=== PATIENT | female | born 1975 | race Caucasian/White ===

== ENCOUNTER 2020-01-07 09:19 | Outpatient (CLI) | payer OTHER, SELFPAY ==
--- NOTE | ~2020-01-07 | MM_ITS ---
EXAMINATION: MM scrn sandra implant BI w hugo HISTORY: Screening mammogram TECHNIQUE: Craniocaudal and mediolateral oblique 3-D tomosynthesis images with implant displacement a nd synthetic 2-D images were generated. Craniocaudal and mediolateral oblique views of the breasts wi thout implant displacement were obtained using full field digital mammography. CAD analysis was submi tted and interpreted. COMPARISON: 11/13/2018, 11/07/2017, 10/10/2016 BREAST PARENCHYMAL COMPOSITION: There are scattered areas of fibroglandular density. FINDINGS: RIGHT BREAST: There is no evidence of suspicious mass, calcification, or architectural distortion to suggest malignancy. There has been no significant interval change. LEFT BREAST: A mass is present in the far posterior third of the outer breast 10 cm from the nipple w hich is only appreciated on the CC and MLO views without implant displacement. IMPRESSION: 1. Left breast mass. 2. Additional mammographic views and possible breast ultrasound are recommended. BI-RADS Category 0: Incomplete: Needs additional imaging evaluation. Reviewed, dictated and finalized at location A. IMPRESSION: 1. Left breast mass. 2. Additional mammographic views and possible breast ultrasound are recommended . BI-RADS Category 0: Incomplete: Needs additional imaging evaluation.
== END 2020-01-07 09:20 | disposition home or self-care (01) ==
LOC: ANHIMG 09:28
DX: Z12.31 Encounter for screening mammogram for malignant neoplasm of breast (principal); R92.8 Other abnormal and inconclusive findings on diagnostic imaging of breast
CPT/HCPCS: 77063; 77067

== ENCOUNTER → 2020-01-22 08:37 | Outpatient (CLI) | payer OTHER, SELFPAY ==
--- NOTE | ~2020-01-22 | MMUS_ITS ---
EXAMINATION: MM diagnostic mammo implant LT, US breast LT limited HISTORY: Posterior upper outer quadrant left breast mass reported on 01/07/2020 screening mammogram ex amination TECHNIQUE: Additional 3-D tomosynthesis images of the left breast were performed and synthetic 2-D im ages were generated. CAD analysis was submitted and interpreted. High resolution upper outer quadrant left breast ultrasound was performed. COMPARISON: 01/07/2020 bilateral implant digital screening mammogram examination FINDINGS: MAMMOGRAPHIC FINDINGS: There is an irregular poorly circumscribed approximately 9 x 13.7 mm mass situated posteriorly in the upper outer quadrant of the left breast. The mammographic features are very suspicious. ULTRASOUND: There is an irregular poorly circumscribed hypoechoic approximately 9 x 15 mm mass at 2:00 8 cm from the nipple with mild posterior shadowing. This is highly suggestive of breast cancer. IMPRESSION: 1. 9 x 15 mm irregular mass in posterior upper outer left breast at 2:00 8 cm from nipple, highly sug gestive of malignancy 2. Ultrasound-guided biopsy is recommended BI-RADS category 5, highly suggestive of malignancy. Connor Amaya was noted at [phone] Maldonado of the findings and ultrasound guid ed biopsy recommendation on 01/22/2020 at 1057 hours Reviewed, dictated and finalized at location A. IMPRESSION: 1. 9 x 15 mm irregular mass in posterior upper outer left breast at 2:00 8 cm f rom nipple, highly suggestive of malignancy 2. Ultrasound-guided biopsy is recommended BI-RADS category 5, highly suggestive of malignancy. Connor Amaya was noted at [phone] Maldonado of the findin gs and ultrasound guided biopsy recommendation on 01/22/2020 at 1057 hours IMPRESSION: 1. 9 x 15 mm irregular mass in posterior upper outer left breast at 2:00 8 cm f rom nipple, highly suggestive of malignancy 2. Ultrasound-guided biopsy is recommended BI-RADS category 5, highly suggestive of malignancy. Monique, R.N. was noted at [phone] Maldonado of the [facility] and ultrasound guided biopsy recommendation on 01/22/2020 at 1057 hours
== END ==
PROVIDERS: PCP Nurse Practitioner; Visit Provider Nurse Practitioner
DX: R92.8 Other abnormal and inconclusive findings on diagnostic imaging of breast (principal)
CPT/HCPCS: 76642; 77065

== ENCOUNTER 2020-01-28 10:04 | Outpatient (CLI) | payer OTHER, SELFPAY ==
--- NOTE | ~2020-01-28 | US_ITS ---
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 Imaging findings are concordant. Addendum 02/24/20 BJO CORRECTED REPORT Post biopsy invasive LT added. 01/28/20 se EXAMINATION: US breast biopsy LT w image, MM post biopsy invasive LT DATE: 01/28/2020 11:26 INDICATION: Suspicious left breast mass. Ultrasound-guided core biopsy is requested to evaluate for malignancy. TECHNIQUE AND FINDINGS: The risks and potential benefits of the procedure were discussed with the patient including bleeding, infection, incomplete damage, and nondiagnostic specimen. A time out was performed. The skin of the left breast was prepared and draped in usual sterile fashion. 1% lidocaine was used for superficial anesthesia. 1% lidocaine with epinephrine was used for deep anesthesia. A vacuum-assisted biopsy gun needle was advanced through to the outer edge of the region of interest from an inferolateral approach utilizing sonographic guidance. A total of four tissue core samples were obtained through the lesion. A tissue marker clip was then placed at the biopsy site. Hemostasis was achieved. A sterile bandage was applied. The patient tolerated procedure well and there was no evidence of immediate complication. The patient was given verbal instructions to return to the Emergency Department in the event of severe breast pain or rapid breast enlargement. A two view left breast mammogram was obtained to document tissue marker clip placement. IMPRESSION: 1. Successful ultrasound-guided vacuum-assisted biopsy of left breast mass with tissue marker placement. Reviewed, dictated and finalized at location A. MTDD
== END 2020-01-28 10:05 | disposition home or self-care (01) ==
LOC: ANHIMG 10:10
PROVIDERS: PCP Family Medicine
DX: N63.20 Unspecified lump in the left breast, unspecified quadrant (principal); C50.912 Malignant neoplasm of unspecified site of left female breast
CPT/HCPCS: 19083; 88305; 88342; A4648

== ENCOUNTER → 2022-07-27 10:27 | Outpatient (CLI) | payer OTHER, SELFPAY ==
--- NOTE | ~2022-07-27 | XR_ITS ---
EXAMINATION: XR chest 2V 07/27/2022 11:10 INDICATION: Acute bronchitis PROCEDURE: 2 view chest COMPARISON: Comparison to multiple prior studies sequentially, with oldest reviewed study dated 11/2014. FINDINGS: The lungs are clear. The cardiomediastinal silhouette is within normal limits. There are no pleural effusions. There is no pneumothorax suspected. IMPRESSION: 1: NO ACUTE CARDIOPULMONARY DISEASE. Reviewed, dictated and finalized at location B.
== END ==
DX: J20.9 Acute bronchitis, unspecified (principal)
CPT/HCPCS: 71046

== ENCOUNTER 2022-12-21 10:19 | Emergency (ER) | payer OTHER, SELFPAY ==
--- NOTE | ~2022-12-21 | CT_ITS ---
CT Abdomen and Pelvis with contrast. History: Epigastric pain. Spiral CT of the abdomen and pelvis was performed after the administration of intravenous contrast. 1 00 cc of Omnipaque 350 was administered intravenously without complication. Dose reduction technique was used on this scan by utilizing automated exposure control and iterative reconstruction technique. The dose-length product (DLP) was 585.36 mGy-cm. COMPARISON: 02/29/2016 Findings: Scans through the lung bases demonstrate mild atelectatic change. Probable left hepatic lobe cyst noted. The spleen, pancreas, gallbladder, adrenals and kidneys are wi thin normal limits. No evidence of aortic aneurysm. No lymphadenopathy is seen. There is no evidence of bowel obstruction. There is no evidence to suggest acute appendicitis or dive rticulitis. Images through the pelvis were performed. Urinary bladder unremarkable. No adnexal mass evident. No a scites. No ascites is seen. Impression: No significant abnormalities seen. Reviewed, dictated and finalized at [facility]. OPEDIC NURSE PRACTITIONER Impression: No significant abnormalities seen.
[2022-12-21 10:22] VITALS: BP 148/90; PULSE 104; RESP 14; TEMP 36.6; O2SAT 100
[2022-12-21 10:42] LABS: Basophils Percent Auto 0.7 % (0.2-1.2); Eosinophils Absolute Auto 0.1 K/mm3 (0-0.3); Eosinophils Percent Auto 1.6 % (0-4.4); Hematocrit 39.2 % (37.0-47.0); Hemoglobin 12.7 g/dL (12.0-15.0); Lymphocytes Absolute Auto 1.32 K/mm3 (0.9-3.2); Lymphocytes Percent Auto 21.6 % (18.3-44.2); Mean Corpuscular HGB Conc 32.4 g/dl (32-36); Mean Corpuscular Hemoglobin 28.3 pg (26-34); Mean Corpuscular Volume 87.5 fl (80-100); Mean Platelet Volume 10.5 fl (7.4-10.4); Monocytes Absolute Auto 0.5 K/mm3 (0.1-0.6); Monocytes Percent Auto 8.8 % (2.6-8.5); Neutrophils Absolute Auto 4.1 K/mm3 (1.3-6.7); Neutrophils Percent Auto 67.3 % (45.5-73.1); Platelet Count Result 191 k/mm3 (150-375); Red Blood Count 4.48 M/mm3 (4.2-5.4); Red Cell Distribution Width 12.7 % (11.5-14.5); White Blood Count 6.1 K/mm3 (4.5-10.0)
[2022-12-21 10:49] LABS: Appearance Urine Clear (Clear); Bilirubin Urine Negative (Negative); Blood Urine Negative (Negative); Color Urine Yellow (Yellow); Glucose Urine UA Negative (Negative); Ketones Urine Negative (Negative); Leukocyte Esterase Ur Trace LEU/UL (Negative); Nitrate Urine Negative (Negative); Protein Urine Negative (Negative); Specific Grav Ur <= 1.005 (1.001-1.035); Urobilinogen Urine 0.2 mg/dL (<2.0); pH Urine 5.5 (5.0-9.0)
[2022-12-21 10:53] LABS: Alanine Aminotransferase 20 U/L (6-35); Albumin Level 3.9 g/dL (3.5-5.1); Alkaline Phosphatase 71 U/L (38-126); Anion Gap 7 mmol/L (8-16); Aspartate Amino Transferase 28 U/L (14-36); Bilirubin,Total 0.4 mg/dL (0.2-1.3); Blood Urea Nitrogen 12 mg/dL (7-17); Calcium 8.2 mg/dL (8.4-10.2); Carbon Dioxide 27 mmol/L (22-30); Chloride 106 mmol/L (98-107); Estimated CRCL calculation 70 ml/min; Estimated Glomerular Filt Rate 60; Glucose 97 mg/dL (65-110); Lipase 137 U/L (23-300); Potassium 3.7 mmol/L (3.4-5.0); Sodium 140 mmol/L (137-145)
[2022-12-21 11:00] LABS: Bacteria Urine Trace /hpf; Mucus Urine Rare /lpf; RBC Urine 0-2 /hpf (0-2); Squamous Epithelial Cell Urine Moderate /hpf (Few); WBC Urine 0-3 /hpf
[2022-12-21 11:04] LABS: Add Urine Microscopic? YES
--- NOTE | 2022-12-21 14:08 | ED.ABDPAIN ---
HPI - Abdominal Pain General Chief Complaint: Abdominal Pain Stated Complaint: severe abd pain Time Seen by Provider: 12/21/22 12:10 Source: patient Mode of arrival: ambulatory Limitations: no limitations History of Present Illness HPI narrative: 47-year-old here with complaints of epigastric pain for past 3 weeks. She denies any nausea, vomiting of fever no history of blood in the stool or black-colored stool. Patient states that she is taking double the dose of omeprazole for past few days. Yet continues to have pain in the epigastric area. MD elicited complaint: abdominal pain Pertinent past history: none Onset (ago): week(s) (3) Pain Consistency: constant Location: epigastric Quality: aching Radiation: none Migration to: no migration Exacerbating factors: nothing Relieving factors: nothing Related Data Allergies Allergy/AdvReac Type Severity Reaction Status Date / Time adhesive tape Allergy Mild Hives Verified 12/21/22 10:28 Review of Systems Review of Systems: All systems reviewed & are unremarkable except as noted in HPI and below Constitutional: Constitutional: Reports no additional constitutional complaints Eyes: Eyes: Reports no additional eye complaints ENT: Reports system reviewed and no additional complaints, except as documented Cardiovascular: Cardiovascular: Reports no additional cardiovascular complaints Respiratory: Respiratory: Reports no additional respiratory complaints Gastrointestinal: Gastrointestinal: Reports as per HPI Musculoskeletal: Musculoskeletal: Reports no additional musculoskeletal complaints Exam Narrative: GENERAL: Well-appearing, well-nourished, and in no acute distress. HEAD: Normocephalic, atraumatic. EYES: PERRLA and EOMI. NECK: Supple. CHEST: Clear to auscultation. No respiratory distress. HEART: Regular rate and rhythm. No murmur heard. Normal peripheral pulses. ABDOMEN: Soft, tender in the epigastric, nondistended, normal active bowel sounds. EXTREMITIES: Normal range of motion. No edema. SKIN: Warm, dry, no rash. NEURO: No focal deficits. Alert and oriented x3. PSYCH: Normal mood and affect. Course Course Emergency Course: 37-year-old with epigastric pain for 3-week duration with no history of nausea, vomiting , or abdominal work-up including CT was unremarkable. I did inform her about her lab work and CT findings recommended her to take Carafate and follow-up with the GI doctor. She declined any pain medication. Vital Signs Vital signs: Vital Signs Temperature 36.6 C 12/21/22 10:22 Pulse Rate 104 H 12/21/22 10:22 Respiratory Rate 14 12/21/22 10:22 Blood Pressure 148/90 H 12/21/22 10:22 Pulse Oximetry 100 12/21/22 10:22 Oxygen Delivery Room Air 12/21/22 10:22 Temperature 36.6 C 12/21/22 10:22 Pulse Rate 104 H 12/21/22 10:22 Respiratory Rate 14 12/21/22 10:22 Blood Pressure 148/90 H 12/21/22 10:22 Pulse Oximetry 100 12/21/22 10:22 Oxygen Delivery Room Air 12/21/22 10:22 MDM - Abdominal Pain MDM Narrative Medical decision making narrative: 47-year-old with 3-week history of epigastric pain tenderness on palpation will do abdominal work-up and CT. Differential Diagnosis Differential diagnosis: Likely abdominal pain and other (Gastritis, pancreatitis, gallbladder disease) Lab Data 12/21/22 10:29 12/21/22 10:29 Labs: Lab Results 12/21/22 12/21/22 12/21/22 Range/Units 10:29 10:29 10:43 WBC 6.1 (4.5-10.0) K/mm3 RBC 4.48 (4.2-5.4) M/mm3 Hgb 12.7 (12.0-15.0) g/dL Hct 39.2 (37.0-47.0) % MCV 87.5 (80-100) fl MCH 28.3 (26-34) pg MCHC 32.4 (32-36) g/dl RDW 12.7 (11.5-14.5) % Plt Count 191 (150-375) k/mm3 MPV 10.5 H (7.4-10.4) fl Immature Gran % (Auto) 0.0 (0-0.5) % Neut % (Auto) 67.3 (45.5-73.1) % Lymph % (Auto) 21.6 (18.3-44.2) % [place] % (Auto) 8.8 H (2.6-8.5) % Eos % (Auto) 1.6 (0-4.4) % Baso % (Auto)
== END 2022-12-21 14:34 | disposition home or self-care (01) ==
PROVIDERS: Emergency Medicine; Emergency Provider Family Medicine; PCP Family Medicine
DX: R10.13 Epigastric pain (principal)
CPT/HCPCS: 36415; 74177; 80053; 81001; 81025; 83690; 85025; 99284; Q9967

== ENCOUNTER 2022-12-22 13:39 | Outpatient (CLI) | payer OTHER, SELFPAY ==
--- NOTE | ~2022-12-22 | XR_ITS ---
EXAMINATION: XR chest 2V 12/22/2022 13:57 INDICATION: Chest pain. History of breast cancer. PROCEDURE: 2 view chest COMPARISON: 07/27/2022 FINDINGS: The lungs are clear. The cardiomediastinal silhouette is within normal limits. There are no pleural effusions. There is no pneumothorax suspected. IMPRESSION: 1: NO ACUTE CARDIOPULMONARY DISEASE. Reviewed, dictated and finalized at location L. ER HEAD WET PROCESS
== END 2022-12-22 13:40 | disposition home or self-care (01) ==
PROVIDERS: PCP Family Medicine; Visit Provider Nurse Practitioner
DX: R07.89 Other chest pain (principal); R10.13 Epigastric pain; Z85.3 Personal history of malignant neoplasm of breast
CPT/HCPCS: 71046

== ENCOUNTER 2023-01-04 07:53 | Outpatient (CLI) | payer OTHER, SELFPAY ==
--- NOTE | ~2023-01-04 | NM_ITS ---
EXAMINATION: NM hepatobiliary wo pharm DATE: 01/04/2023 10:49 INDICATION: Epigastric abdominal pain. COMPARISON: CT abdomen and pelvis 12/21/2022 TECHNIQUE: 4.8 mCi Tc-99m mebrofenin (Choletec) was administered intravenously. Scintigraphic images of the abdomen were obtained for one hour. Then, the patient drank 8 oz Ensure, and imaging was cont inued for 60 minutes. FINDINGS: There is normal clearance of radiotracer from the blood pool. There is homogeneous tracer u ptake by the liver. Activity progresses to the bowel and gallbladder. Gallbladder ejection fraction (GBEF) was 68%. Note that with this technique, normal GBEF >= 33%. IMPRESSION: 1. Normal hepatobiliary scintigraphy. Reviewed, dictated and finalized at location A. FIC INSPECTOR
== END 2023-01-04 07:54 | disposition home or self-care (01) ==
PROVIDERS: PCP Family Medicine; Visit Provider Nurse Practitioner
DX: R10.13 Epigastric pain (principal); R07.89 Other chest pain
CPT/HCPCS: 78226; A9537

== ENCOUNTER 2023-01-11 00:39 | Day surgery (SDC) | payer OTHER, SELFPAY ==
[2023-01-02 12:38] VITALS: BMI 34.1
[2023-01-11 11:06] VITALS: BP 128/75; PULSE 91; RESP 18; TEMP 36.2; O2SAT 99
[2023-01-11] MEDS: LACTATED RINGERS 1,000 ML 150 ML IV CONT (11:15)
--- NOTE | 2023-01-11 11:49 | WPDANESEPPF ---
Anes - Initial Pre Proc Eval Procedure: Operation Date: 01/11/23 12:30 Proposed Procedures p Esophagogastroduodenoscopy - Eddie Maya MD Date/Time: 01/11/23 11:49 Surgeon: Eddie Maya MD Pre Op Diagnosis: Epigastric Pain Patient Data Age: 47 Gender: F Height: 1.65 m Weight: 90.7 kg Last Vital Signs Temp 97.2 F L 01/11/23 11:06 Pulse 91 01/11/23 11:06 Resp 18 01/11/23 11:06 BP 128/75 01/11/23 11:06 Pulse Ox 99 01/11/23 11:06 O2 Del Method Room Air 01/11/23 11:06 Allergies Allergy/AdvReac Type Severity Reaction Status Date / Time adhesive tape Allergy Mild Hives Verified 01/11/23 11:05 Home Medications Medication Instructions Recorded Confirmed Type sucralfate 1 gram tablet (Carafate) 1 g PO ACHS #120 tabs 12/22/22 01/02/23 Rx omeprazole 40 mg capsule,delayed See Rx Instructions .Route 12/23/22 01/02/23 Rx release .COMPLEX #180 caps cholecalciferol (vitamin D3) 125 125 mcg PO DAILY 01/02/23 01/02/23 History mcg (5,000 unit) tablet (Vitamin D3) levothyroxine 50 mcg tablet 50 mcg PO DAILY 01/02/23 01/02/23 History (Synthroid) rosuvastatin 40 mg tablet 40 mg PO DAILY 01/02/23 01/02/23 History tamoxifen 20 mg tablet 20 mg PO DAILY 01/02/23 01/02/23 History Patient hx anesthesia problems: none Family hx anesthesia problems: none Results Review: All pre-operative results and documents have been reviewed as part of the pre-operative evaluation. REPLACED BY [facility] Past Medical History Medical History (Updated 12/22/22 @ 13:25 by Mendy Norton APRN) Colon cancer screening Epigastric pain History of malignant neoplasm of left breast Xiphoid pain Social History Social History Smoking status: Never smoker Alcohol intake: never Substance use: never Substance use type: does not use Living arrangements: alone Spiritual care concerns: No Anes - Eval Final PreProcedure Day of Procedure 01/11/23 11:49 Patient weight: obese Heart: regular rate and rhythm Lungs: clear to auscultation Airway: Mallampati scale class II Neurological: alert and oriented Last oral intake: >/= 8 hours ASA classification: III Emergent: no Anesthetic plan: proceed Anesthesia type and monitoring: general GIVS and standard monitoring Results Review: All pre-operative results and documents have been reviewed as part of the pre-operative evaluation. Informed Consent: The patient's anesthetic plan and its attendant risks and benefits were discussed with the patient/family/POA. Questions were solicited and answers provided to the satisfaction of the patient/family/POA.
--- NOTE | 2023-01-11 11:52 | PM.HPGS ---
History of Present Illness History of Present Illness Consent: Risks, benefits, and alternatives have been discussed and questions answered. Patient agrees to proceed with procedure. Chief complaint: Epigastric Pain Narrative: Tiffanie Gonzalez is a 47 year old female with epigastric pain, ER visit with negative CT scan and then normal hida scan. Better after increased omeprazole to twice daily and added carafate. Last EGD about 15 years ago. Review of Systems Constitutional: Constitutional: Denies headache(s) and Denies weakness Eyes: Eyes: Denies blurry vision ENT: Reports Normal hearing present, Denies headache(s) and Denies neck pain Cardiovascular: Cardiovascular: Denies chest pain and Denies dyspnea Respiratory: Respiratory: Denies dyspnea Gastrointestinal: Gastrointestinal: Reports no additional gastrointestinal complaints Genitourinary: Genitourinary: Denies dysuria Musculoskeletal: Musculoskeletal: Denies neck pain Integumentary/Breasts: Skin/Breast: Denies dry skin Neurologic: Reports Normal hearing present, Denies headache(s) and Denies weakness Psychiatric: Psychiatric: Denies anxiety Endocrine: Endocrine: Denies change in body appearance Hematologic/Lymphatic: Hematologic/Lymphatic: Denies easy bleeding Allergic/Immunologic: Allergic/Immunologic: Denies urticaria PMFSH Past Medical History Medical History (Updated 12/22/22 @ 13:25 by Mendy Norton, ZULEIKA) Colon cancer screening Epigastric pain History of malignant neoplasm of left breast Xiphoid pain Social History Social History Smoking status: Never smoker Alcohol intake: never Substance use: never Substance use type: does not use Living arrangements: alone Spiritual care concerns: No Meds Home Medications and Allergies Home Medications Medication Instructions Recorded Confirmed Type sucralfate 1 gram tablet (Carafate) 1 g PO ACHS #120 tabs 12/22/22 01/02/23 Rx omeprazole 40 mg capsule,delayed See Rx Instructions .Route 12/23/22 01/02/23 Rx release .COMPLEX #180 caps cholecalciferol (vitamin D3) 125 125 mcg PO DAILY 01/02/23 01/02/23 History mcg (5,000 unit) tablet (Vitamin D3) levothyroxine 50 mcg tablet 50 mcg PO DAILY 01/02/23 01/02/23 History (Synthroid) rosuvastatin 40 mg tablet 40 mg PO DAILY 01/02/23 01/02/23 History tamoxifen 20 mg tablet 20 mg PO DAILY 01/02/23 01/02/23 History Allergies Allergy/AdvReac Type Severity Reaction Status Date / Time adhesive tape Allergy Mild Hives Verified 01/11/23 11:05 Vital Signs Vital Signs - 24 hr 01/11/23 11:06 Temperature 97.2 F L Pulse Rate 91 Respiratory Rate 18 Blood Pressure 128/75 Pulse Oximetry 99 Oxygen Delivery Room Air Exam Const: General: comfortable and no acute distress HENMT: Face/Nose/Sinus: Normal nares present Eyes: General: appearance normal, both eyes and all related structures Neck: Neck: no JVD Resp: Auscultation: clear to auscultation bilaterally Cardio: Rate: regular rate Rhythm: regular rhythm GI: Inspection: non-distended GI Palp: Yes Soft to palpation Skin: General skin exam: normal color Neuro: General: gait normal Speech: normal speech Extrem: General: normal to inspection Psych: Mental Status: mental status grossly normal Assessment and Plan Assessment and plan (1) Epigastric pain: Code(s): R10.13 - Epigastric pain Status: Acute Assessment and Plan: egd with bx on ppi
[2023-01-11 12:09] VITALS: BP 90/54; PULSE 78; RESP 18; O2SAT 96
[2023-01-11 12:19] VITALS: BP 84/60; PULSE 84; RESP 22; O2SAT 100
[2023-01-11 12:29] VITALS: BP 98/66; PULSE 73; RESP 19; O2SAT 100
== END 2023-01-11 12:42 | disposition home or self-care (01) ==
PROVIDERS: PCP Family Medicine; Visit Provider Internal Medicine Gastroenterology
PROC: 0DJ08ZZ Inspection of Upper Intestinal Tract, Via Natural or Artificial Opening Endoscopic (ICD-10-PCS; CPT 43235; principal; 2023-01-11 12:30)
DX: K21.9 Gastro-esophageal reflux disease without esophagitis (principal); K29.70 Gastritis, unspecified, without bleeding; K44.9 Diaphragmatic hernia without obstruction or gangrene; Z79.810 Long term (current) use of selective estrogen receptor modulators (SERMs); Z85.3 Personal history of malignant neoplasm of breast; E66.9 Obesity, unspecified; Z68.33 Body mass index [BMI] 33.0-33.9, adult
CPT/HCPCS: 43239; 88305; J2704; J7120

== ENCOUNTER 2025-01-28 07:48 | Outpatient (CLI) | payer OTHER, SELFPAY ==
--- NOTE | ~2025-01-28 | XR_ITS ---
XR hip RT min 2V, XR femur RT min 2V 01/28/2025 08:15 Indication: Right hip pain Procedure: 2 views right hip 2 views right femur Comparison: Right hip pain Findings: There is mild osteoarthritis of the right hip and knee. No fracture, subluxation or disloca tion. There is anatomic alignment. There are 2 screws transfixing the proximal tibia. No focal soft t issue abnormality. No foreign bodies. Impression: 1: Mild polyarticular osteoarthritis. Reviewed, dictated and finalized at location A. Impression: 1: Mild polyarticular osteoarthritis. Impression: 1: Mild polyarticular osteoarthritis.
== END 2025-01-28 07:49 | disposition home or self-care (01) ==
LOC: MICIMG 07:52
PROVIDERS: PCP Nurse Practitioner Adult Health; Visit Provider Nurse Practitioner Adult Health
DX: M16.11 Unilateral primary osteoarthritis, right hip (principal); C50.919 Malignant neoplasm of unspecified site of unspecified female breast
CPT/HCPCS: 73502; 73552

== ENCOUNTER 2025-05-29 10:06 | Outpatient (CLI) | payer OTHER, SELFPAY ==
--- NOTE | ~2025-05-29 | XR_ITS ---
Cervical Spine: AP, lateral, open-mouth views Clinical History: Pain Findings: The normal lordotic curve is maintained. No fracture or subluxation. Minimal degenerative s pondylitic changes are present. No instability on flexion or extension. Pre-vertebral soft tissues ar e unremarkable. Impression: Minimal degenerative spondylitic changes. Reviewed, dictated and finalized at location . Impression: Minimal degenerative spondylitic changes.
--- NOTE | ~2025-05-29 | XR_ITS ---
Lumbosacral Spine: AP comment oblique, and lateral views Clinical History: Pain Findings: There is mild dextroscoliosis. No fracture or subluxation. There is moderate to advanced fa cet arthropathy throughout the lumbar spine. Intervertebral disc spaces are well preserved. The sacro iliac joints are normally outlined. Impression: Mild dextro scoliosis with extensive facet arthropathy. Reviewed, dictated and finalized at location . Impression: Mild dextro scoliosis with extensive facet arthropathy.
--- NOTE | ~2025-05-29 | XR_ITS ---
Thoracic spine: Clinical Indication: Cramps, pain AP and lateral views were performed. No fracture is seen. There is normal alignment of the vertebrae. The intervertebral disc spaces appe ar normal. Paravertebral soft tissues appear normal. Impression: No significant abnormalities noted. Reviewed, dictated and finalized at [facility]. Impression: No significant abnormalities noted.
== END 2025-05-29 10:07 | disposition home or self-care (01) ==
LOC: MICIMG 10:09
PROVIDERS: PCP Nurse Practitioner Adult Health; Visit Provider Nurse Practitioner Adult Health
DX: R25.2 Cramp and spasm (principal)
CPT/HCPCS: 72050; 72072; 72110